=== PATIENT | male | born 1960 | race African-American/Black ===

== ENCOUNTER 2020-03-25 20:15 | Emergency (ER) | payer BC ==
[2020-03-25 20:26] VITALS: BP 133/83
--- NOTE | 2020-03-25 21:13 | ER Document Report ---
ED Medical Screen (RME) - General Chief Complaint: Testicular Pain Stated Complaint: LEFT TESTICLE SWELLING Notes: HPI: 60-year-old male presenting with left testicular pain progressively worsening today. Patient lifted a heavy box yesterday and felt a pulling sensation in the left groin does have a prior history of inguinal repair on the left side 30 years ago. No difficulty urinating. No fever no abdominal pain PHYSICAL EXAMINATION: Circumcised male. Bilateral testicles are descended. Left testicle slightly enlarged compared to the right with pain over the epididymis on palpation. No definitive scrotal or inguinal hernia is palpable on standing I have greeted and performed a rapid initial assessment of this patient. A comprehensive ED assessment and evaluation of the patient, analysis of test results and completion of medical decision making process will be conducted by an additional ED providers. - Related Data Allergies/Adverse Reactions: No Known Allergies Allergy (Unverified 03/25/20 21:03) Past Medical History - Social History Frequency of alcohol use: Social Drug Abuse: None Physical Exam - Vital signs Vitals: Temp Pulse Resp BP Pulse Ox 99.1 F 97 16 133/83 H 99 03/25/20 20:20 03/25/20 20:20 03/25/20 20:20 03/25/20 20:20 03/25/20 20:20 Course - Vital Signs Vital signs: Temp Pulse Resp BP Pulse Ox 99.1 F 97 16 133/83 H 99 03/25/20 21:04 03/25/20 20:20 03/25/20 20:20 03/25/20 20:20 03/25/20 20:20
[2020-03-25] MEDS ORDERED: ACETAMINOPHEN 325 MG TABLET PO ONE (21:57)
[2020-03-25] MEDS ORDERED: IBUPROFEN 600 MG TABLET PO ONE (21:57)
--- NOTE | 2020-03-25 22:00 | ER Document Report ---
ED GI/ - General Chief Complaint: Testicular Pain Stated Complaint: LEFT TESTICLE SWELLING Time Seen by Provider: 03/25/20 21:37 Notes: Patient is a 60-year-old male that comes to the emergency department chief complaint of testicular pain mainly on the left side. He states it started yesterday, he states it did start shortly after lifting a heavy box and he did feel a pulling sensation in the groin. He states pain is significantly worse today. He denies severe pain, vomiting, nausea, fever/chills, dysuria, discharge. He states he has a history of inguinal hernia repair on the left side about 30 years ago. He smokes, drinks occasionally, takes no daily medications, denies any other surgery, denies any other medical history. He denies any other complaints. - Related Data Allergies/Adverse Reactions: No Known Allergies Allergy (Unverified 03/25/20 21:03) Past Medical History - General Information source: Patient - Social History Smoking Status: Current Every Day Smoker Frequency of alcohol use: Social Drug Abuse: None Lives with: Family Family History: Reviewed & Not Pertinent Patient has homicidal ideation: No Past Surgical History: Reports: Hx Herniorrhaphy - Immunizations Immunizations up to date: Yes Hx Diphtheria, Pertussis, Tetanus Vaccination: Yes Review of Systems - Review of Systems Constitutional: No symptoms reported EENT: No symptoms reported Cardiovascular: No symptoms reported Respiratory: No symptoms reported Gastrointestinal: No symptoms reported Genitourinary: See HPI Male Genitourinary: See HPI Musculoskeletal: No symptoms reported Skin: No symptoms reported Hematologic/Lymphatic: No symptoms reported Neurological/Psychological: No symptoms reported Physical Exam - Vital signs Vitals: Temp Pulse Resp BP Pulse Ox 99.1 F 97 16 133/83 H 99 03/25/20 20:20 03/25/20 20:20 03/25/20 20:20 03/25/20 20:20 03/25/20 20:20 - Notes Notes: GENERAL: Alert, interacts well. No acute distress. HEAD: Normocephalic, atraumatic. EYES: Pupils equal, round, and reactive to light. Extraocular movements intact. ENT: Oral mucosa moist, tongue midline. Oropharynx unremarkable. Airway patent. NECK: Full range of motion. Supple. Trachea midline. No lymphadenopathy. LUNGS: Clear to auscultation bilaterally, no wheezes, rales, or rhonchi. No respiratory distress. Non-tender chest wall. HEART: Regular rate and rhythm. No murmur ABDOMEN: Soft, non-tender. Non-distended. Bowel sounds present in all 4 quadrants. GENITOURINARY: There is no swelling to either testicle. No discharge or rash noted. There is tenderness in the left posterior scrotum/testicle area, specifically over the epididymis. Cremaster reflex is normal. No other concerning findings. EXTREMITIES: Moves all 4 extremities spontaneously. No edema, normal radial and dorsalis pedis pulses bilaterally. No cyanosis. BACK: no cervical, thoracic, lumbar midline tenderness. No saddle anesthesia, normal distal neurovascular exam. Moves all extremities in full range of motion. NEUROLOGICAL: Alert and oriented x3. Normal speech. Cranial nerves II through XII grossly intact. Strength 5/5 in all extremities. PSYCH: Normal affect, normal mood. SKIN: Warm, dry, normal turgor. No rashes or lesions noted. Course - Re-evaluation Re-evalutation: Ultrasound shows varicoceles, left-sided epididymitis. This is consistent with patient's exam. Patient states he is not sexually active and has not been for a long time. As result I have low suspicion of urethritis from an STD. Patient states that his ride is leaving pain he has to leave with them, he provided a urine sample but states he cannot wait for the results. I discussed with him and decided to treat him with an antibiotic just in case, the urine will be cultured when this is obtained. Patient states appreciation. I discussed treatment recommendations, follow-up, and return precautions. Patient states understanding and agreement. Urinalysis does have white blood cells, culture was placed. - Vital Signs Vital signs: Temp Pulse Resp BP Pulse Ox 99.1 F 97 16 133/83 H 99 03/25/20 21:04 03/25/20 20:20 03/25/20 20:20 03/25/20 20:20 03/25/20 20:20 - Laboratory Laboratory results interpreted by me: 03/25/20 23:13 Ur Leukocyte Esterase MODERATE H Discharge - Discharge Clinical Impression: Left testicular pain Condition: Stable Disposition: HOME, SELF-CARE Additional Instructions: Your ultrasound shows epididymitis, this appears to be the cause of your pain. You also have small varicoceles as we discussed. I recommend supportive underwear, the anti-inflammatory as prescribed, and you have been placed on antibiotics. Symptoms should simply resolve with time. Follow-up with primary care for additional management. Return if you worsen including developing severe worsening pain or swelling, vomiting, fever, or any other concerning symptoms. Prescriptions: Sulfamethoxazole/Trimethoprim [Bactrim Ds Tablet] 1 each PO BID #14 tablet Naproxen 500 mg PO BID PRN #14 tablet PRN Reason: Forms: Return to Work
--- NOTE | 2020-03-25 22:24 | RADIOLOGY REPORT (SQ) ---
EXAM DESCRIPTION: CLINICAL HISTORY: 60 years Male; left testicle pain TECHNIQUE: Zaman-scale, color, and spectral Doppler images were obtained of the testes and scrotum. COMPARISON: None FINDINGS: Right testicle: The testicle measures 3.0 x 1.6 x 3.5 cm. Blood flow and echogenicity are normal. No mass. No microcalcifications. The epididymis measures 0.8 x 1.0 x 1.0 cm and contains two simple cysts. The larger cyst measures 0.6 x 0.5 x 0.4 cm. Dilated scrotal veins are noted which measure up to 4.3 mm in size. These increase with Valsalva. No hydrocele.. Left testicle: The testicle measures 3.4 x 2.2 x 2.3 cm. Echogenicity and blood flow are normal. The epididymis is heterogeneous and measures 1.2 x 1.2 x 1.0 cm. There is increased vascularity. No hydrocele. There are dilated veins which increase with Valsalva consistent with a varicocele.. In addition along the inferior aspect of the scrotum is a hypoechoic area measuring 1.0 x 0.9 x 0.7 cm which has increased vascularity. This may be related to the epididymis. Other: There appeared to be lymph nodes in the inguinal region which measure up to 1.3 cm in size. These are on the left. IMPRESSION: 1. Normal testicles bilaterally. 2. Varicoceles bilaterally. 3. Increased vascularity of the left epididymis suggesting epididymitis. In addition there is a hypoechoic area along the inferior aspect of the testicle which also has increased vascularity may be related to the epididymitis.
[2020-03-25] MEDS ORDERED: CEFTRIAXONE INJ 250 MG VIAL IM ONE (22:54)
[2020-03-25] MEDS ORDERED: LIDOCAINE 1% INJ-PF (10 MG/ML) 30 ML SDV INJ ONE (22:54)
[2020-03-25] MEDS ORDERED: AZITHROMYCIN 250 MG TABLET PO ONE (22:55)
[2020-03-25] MEDS ORDERED: HYDROCODONE/ACETAMINOPHEN 5-325 MG (6 TAB/ER DISP) PO PRN (22:55)
[2020-03-25 23:55] LABS: APPEARANCE,URINE CLEAR; BILIRUBIN,URINE NEGATIVE (NEGATIVE); COLOR,URINE YELLOW; GLUCOSE, URINE NEGATIVE (NEGATIVE); KETONES,URINE NEGATIVE (NEGATIVE); LEUKOCYTE ESTERASE,URINE MODERATE (NEGATIVE); NITRITE,URINE NEGATIVE (NEGATIVE); PROTEIN,URINE NEGATIVE (NEGATIVE); URINE SPECIFIC GRAVITY 1.013; UROBILINOGEN,URINE NEGATIVE mg/dL (<2.0)
== END 2020-03-25 23:20 | disposition home or self-care (01) ==
LOC: ER 20:15
DX: N45.1 Epididymitis (principal); I86.1 Scrotal varices; N50.812 Left testicular pain; F17.200 Nicotine dependence, unspecified, uncomplicated
CPT/HCPCS: 99284; 96372; 87086; 81001; 76870; 93976; J3490; J0696